=== PATIENT | female | born 1975 | race Caucasian/White ===

== ENCOUNTER 2021-02-21 15:15 | Outpatient (CLI) | payer BC | END 2021-02-21 15:16 | disposition home or self-care (01) | LOC: CSHMAMMO 15:15 | PROVIDERS: ATTEND Obstetrics & Gynecology | DX: Z12.31 Encounter for screening mammogram for malignant neoplasm of breast (principal) | CPT/HCPCS: 77063; 77067 ==

== ENCOUNTER 2022-03-05 07:40 | Outpatient (CLI) | payer BC | END 2022-03-05 07:41 | disposition home or self-care (01) | LOC: CSHRAD 07:40 | PROVIDERS: ATTEND Internal Medicine Gastroenterology | DX: R11.0 Nausea (principal); R63.4 Abnormal weight loss; R19.4 Change in bowel habit; K31.4 Gastric diverticulum | CPT/HCPCS: 74246 ==

== ENCOUNTER 2022-04-09 15:30 | Outpatient (CLI) | payer BC | END 2022-04-09 15:31 | disposition home or self-care (01) | LOC: CSHMAMMO 15:30 | PROVIDERS: ATTEND Obstetrics & Gynecology | DX: Z12.31 Encounter for screening mammogram for malignant neoplasm of breast (principal); N64.89 Other specified disorders of breast | CPT/HCPCS: 77063; 77067 ==

== ENCOUNTER 2022-04-14 14:26 | Outpatient (CLI) | payer BC | END 2022-04-14 14:27 | disposition home or self-care (01) | LOC: CSHULT 14:26 | PROVIDERS: ATTEND Obstetrics & Gynecology | DX: N64.89 Other specified disorders of breast (principal); N63.15 Unspecified lump in the right breast, overlapping quadrants | CPT/HCPCS: G0279 ==

== ENCOUNTER 2022-10-13 09:18 | Outpatient (CLI) | payer BC | END 2022-10-13 09:19 | disposition home or self-care (01) | LOC: CSHULT 09:18 | PROVIDERS: ATTEND Obstetrics & Gynecology | DX: R92.8 Other abnormal and inconclusive findings on diagnostic imaging of breast (principal); N60.01 Solitary cyst of right breast ==

== ENCOUNTER 2022-11-05 08:09 | Outpatient (CLI) | payer BC ==
[2022-11-05] MEDS ORDERED: Iopamidol 370 76% 100 ML VIAL ONE (15:19)
== END 2022-11-05 08:10 | disposition home or self-care (01) ==
LOC: CSHCT 08:09
PROVIDERS: ATTEND Physician Assistant Medical
DX: K21.9 Gastro-esophageal reflux disease without esophagitis (principal); R63.4 Abnormal weight loss; R11.0 Nausea
CPT/HCPCS: 74177; Q9967

== ENCOUNTER 2023-05-11 14:46 | Outpatient (CLI) | payer BC | END 2023-05-11 14:47 | disposition home or self-care (01) | LOC: CSHMAMMO 14:46 | PROVIDERS: ATTEND Obstetrics & Gynecology | DX: R92.8 Other abnormal and inconclusive findings on diagnostic imaging of breast (principal); N60.01 Solitary cyst of right breast | CPT/HCPCS: 77066; G0279 ==